=== PATIENT | male | born 1965 | race Caucasian/White ===

== ENCOUNTER 2025-03-26 15:06 | Observation (INO) | payer MEDICARE ==
--- NOTE | 2025-03-26 15:42 | ED ---
General Adult HPI - General Chief complaint: Extremity Problem,Nontraumatic Stated complaint: l foot swelling Time Seen by Provider: 03/26/25 15:17 Source: patient Mode of arrival: ambulatory Limitations: no limitations - History of Present Illness Initial comments: Patient is a pleasant 60-year-old gentleman, no significant medical history presenting today for left lower extremity swelling. Had noticed redness and swelling in his left foot about 3 weeks ago. Continued to worsen over the last 3 weeks. He denies recent injury. States he sleeps with his legs crossed. Endorses pain of the foot with twisting in certain directions. He denies syste cyrus symptoms such as fevers, chills, shortness of breath, chest pain, hemoptysis, cough, abdominal pain, nausea vomiting or diarrhea. Denies numbness. No history of blood clots. No recent travel, surgery or hospitalizations. Is not on hormone replacement therapy. Is a current cigarette smoker. No history of diabetes. No history malignancy. - Related Data Previous Rx's Medication Instructions Recorded Furosemide [Lasix] 40 mg PO DAILY 3 Days #3 tab 03/27/25 Nicotine 21Mg/24Hr Patch [Habitrol] 1 patch TRANSDERM DAILY 3 Days #3 03/27/25 patch Allergies Allergy/AdvReac Type Severity Reaction Status Date / Time ibuprofen AdvReac Nausea & Verified 03/26/25 18:05 Vomiting & Diarrhea Review of Systems ROS Statement: Those systems with pertinent positive or pertinent negative responses have been documented in the HPI. ROS Other: All systems not noted in ROS Statement are negative. Past Medical History Past Medical History: Asthma History of Any Multi-Drug Resistant Organisms: None Reported Past Surgical History: Appendectomy, Cholecystectomy, Joint Replacement, Orthopedic Surgery Past Psychological History: Anxiety Smoking Status: Current every day smoker Past Alcohol Use History: Rare Past Drug Use History: Marijuana General Exam - General Exam Comments Initial Comments: PE: CONSTITUTIONAL: No apparent distress, well appearing SKIN: Warm, dry, no jaundice, hives or petechiae. Mild erythema of the left foot, not well-demarcated, with 1-2+ pitting edema EYES: Pupils are equally round, extraocular movements intact without nystagmus, clear conjunctiva, non-icteric sclera HENT: Normocephalic, atraumatic, moist mucus membranes, oropharynx clear without exudates NECK: , Full range of motion, normal appearance PULMONARY: Clear to auscultation without wheezes, rhonchi, or rales, normal excursion, no accessory muscle use and no stridor CARDIOVASCULAR: Regular rate, rhythm, normal S1 and S2. No appreciated murmurs, rubs or gallops. 2+ dorsalis pedis pulses bilaterally 1-2+ pitting edema extending up to the knee of the left lower extremity GASTROINTESTINAL: Soft, active bowel sounds throughout, non-tender, non- distended, no palpable masses, no rebound or guarding. No hepatosplenomegaly GENITOURINARY: MUSCULOSKELETAL: Extremities have no gross deformity, no bony tenderness palpation, patient is able to range foot through full range of motion without pain or difficulty NEUROLOGIC:_a/o x 3, GCS 15, normal mentation and speech. Moves all extremities x 4 without motor or sensory deficit PSYCHIATRIC:_normal mood and affect, thought process is clear and linear Limitations: no limitations Course Vital Signs 03/26/25 03/26/25 03/26/25 15:09 17:50 19:40 Temperature 97.8 F Pulse Rate 79 70 56 L Respiratory 16 18 18 Rate Blood Pressure 150/79 172/96 142/72 O2 Sat by Pulse 98 97 100 Oximetry 03/26/25 21:28 Temperature Pulse Rate 60 Respiratory 18 Rate Blood Pressure 168/80 O2 Sat by Pulse 100 Oximetry Medical Decision Making - Medical Decision Making Was pt. sent in by a medical professional or institution (LIANNA Hernandez, HAND WORKER, urgent care, hospital, or senior living...) When possible be specific @ -No Did you speak to anyone other than the patient for history (EMS, parent, family, police, friend...)? What history was obtained from this source @ -No Did you review nursing and triage notes (agree or disagree)? Why? @ -I reviewed nursing and triage notes Were old charts reviewed (outside hosp., previous admission, EMS record, old EKG, old radiological studies, urgent care reports/EKG's, senior living records)? Report findings @ -Medical records reviewed-no prior records available for review Differential Diagnosis (chest pain, altered mental status, abdominal pain women, abdominal pain men, vaginal bleeding, weakness, fever, dyspnea, syncope, headache, dizziness, GI bleed, back pain, seizure, CVA, palpatations, mental health, musculoskeletal)? @Differential Musculoskeletal Muscular strain, contusion, ligament sprain, fracture, arthritis, septic arthritis, bursitis, cellulitis, muscle spasm, nerve compression, DVT, arterial occlusion, herpes zoster, electrolyte abnormality, tumor.... This is not meant to be in all inclusive list EKG interpreted by me (3pts min.). @ -As above X-rays interpreted by me (1pt min.). @Personally reviewed x-ray see no evidence of fracture or dislocation I agree with radiologist interpretation CT interpreted by me (1pt min.). @ -None done U/S interpreted by me (1pt. min.). @Reviewed ultrasound left lower extremity I see no evidence of DVT agree with radiologist interpretation What testing was considered but not performed or refused? (CT, X-rays, U/S, labs)? Why? @ -None What meds were considered but not given or refused? Why? @ -None Did you discuss the management of the patient with other professionals (bud sheffield i.e. , PA, HAND WORKER, lab, RT, psych nurse, social media campaign manager, chemical equipment controller, teacher, chief legal officer, patient case manager)? Give summary @ -No Was smoking cessation discussed for >3mins.? @ -No Was critical care preformed (if so, how long)? @ -No Were there social determinants of health that impacted care today? How? (Homelessness, low income, unemployed, alcoholism, drug addiction, transportation, low edu. Level, literacy, decrease access to med. care, [place] [facility], rehab)? @ -No Was there de-escalation of care discussed even if they declined (Discuss DNR or withdrawal of care, Hospice)? @ -No What co-morbidities impacted this encounter? (DM, HTN, Smoking, COPD, CAD, Cancer, CVA, ARF, Chemo, Hep., AIDS, mental health diagnosis, sleep apnea, morbid obesity)? Smoking Was patient admitted / discharged? Hospital course, mention meds given and route, prescriptions, significant lab abnormalities, going to OR and other pertinent info. Admission-this is a 60-year-old man presenting today for atraumatic left lower extremity swelling x 3 weeks. Vital signs on stable on arrival. Exam significant for left lower extremity edema with erythema to the left foot. No bony tenderness with palpation, no deformity. No obvious wounds. Plan for ultrasound of left lower extremity for DVT, labs, including CMP, CBC, lactic and CRP, patient agreeable w/ plan of care. Ultrasound negative for DVT, to ensure no signs of osteomyelitis, x-ray of the left ankle ordered and showed no fracture, + soft tissue edema. Labs overall reassuring. Discussed with patient admission for observation for IV antibiotics versus discharge home. Patient comfortable with either. Given the extent of erythema and edema of the lower extremity patient we admitted for observation for IV antibiotics.Rocephin ordered. Case was discussed Dr. Maria who kindly excepted patient for admission. Undiagnosed new problem with uncertain prognosis? @ -No Drug Therapy requiring intensive monitoring for toxicity (Heparin, Nitro, Insulin, Cardizem)? @ -No Were any procedures done? @ -No Diagnosis/symptom? @Left lower extremity swelling, cellulitis Acute, or Chronic, or Acute on Chronic? @ -Acute Uncomplicated (without systemic symptoms) or Complicated (systemic symptoms)? @Uncomplicated Side effects of treatment? @ -No Exacerbation, Progression, or Severe Exacerbation? @ -No Poses a threat to life or bodily function? How? (Chest pain, USA, AR, pneumonia, PE, COPD, DKA, ARF, appy, cholecystitis, CVA, Diverticulitis, Homicidal, Suicidal, threat to staff... and all critical care pts) @Possibly if left untreated could progress to sepsis and septic shock - Lab Data Result diagrams: 03/26/25 15:41 03/26/25 15:41 Lab Results 03/26/25 03/26/25 03/26/25 Range/Units 15:41 15:41 15:41 WBC 9.71 (4.50-10.00) 10*3/uL RBC 5.40 (4.40-5.60) 10*6/uL Hgb 17.5 H (13.0-17.0) g/dL Hct 50.3 H (39.6-50.0) % MCV 93.1 (80.0-97.0) fL MCH 32.4 H (27.0-32.0) pg MCHC 34.8 (32.0-37.0) g/dL Plt Count 230 (140-440) 10*3/uL MPV 9.6 (9.5-12.2) fL Immature Gran % (Auto) 0.3 % Neutrophils % 59.1 % Lymphocytes % 31.3 % Monocytes % 6.5 % Eosinophils % 1.9 % Basophils % 0.9 % Immature Gran # 0.03 (0.00-0.04) 10*3/uL Neutrophils # 5.74 (1.80-7.70) 10*3/uL Lymphocytes # 3.04 (0.90-5.00) 10*3/uL Monocytes # 0.63 (0.20-1.00) 10*3/uL Eosinophils # 0.18 (0.04-0.35) 10*3/uL Basophils # 0.09 (0.00-0.10) 10*3/uL PT 10.5 (10.0-12.5) sec INR 0.9 (<1.2) APTT 22.3 (22.0-30.0) sec Sodium 142 (137-145) mmol/L Potassium 4.6 (3.5-5.1) mmol/L Chloride 104 (98-107) mmol/L Carbon Dioxide 29 (22-30) mmol/L Anion Gap 9 mmol/L BUN 7 L (9-20) mg/dL Creatinine 0.88 (0.66-1.25) mg/dL Est GFR (CKD-EPI)AfAm >90 (>60 ml/min/1.73 sqM) Est GFR (CKD-EPI)NonAf >90 (>60 ml/min/1.73 sqM) Glucose 112 H (74-99) mg/dL Plasma Lactic Acid Christophe (0.7-2.0) mmol/L Calcium 9.6 (8.4-10.2) mg/dL Total Bilirubin 0.3 (0.2-1.3) mg/dL AST 29 (17-59) U/L ALT 18 (4-49) U/L Alkaline Phosphatase 81 (38-126) U/L C-Reactive Protein 1.1 H (<1.0) mg/dL Total Protein 7.0 (6.3-8.2) g/dL Albumin 4.3 (3.5-5.0) g/dL 03/26/25 Range/Units 15:41 WBC (4.50-10.00) 10*3/uL RBC (4.40-5.60) 10*6/uL Hgb (13.0-17.0) g/dL Hct (39.6-50.0) % MCV (80.0-97.0) fL MCH (27.0-32.0) pg MCHC (32.0-37.0) g/dL Plt Count (140-440) 10*3/uL MPV (9.5-12.2) fL Immature Gran % (Auto) % Neutrophils % % Lymphocytes % % Monocytes % % Eosinophils % % Basophils % % Immature Gran # (0.00-0.04) 10*3/uL Neutrophils # (1.80-7.70) 10*3/uL Lymphocytes # (0.90-5.00) 10*3/uL Monocytes # (0.20-1.00) 10*3/uL Eosinophils # (0.04-0.35) 10*3/uL Basophils # (0.00-0.10) 10*3/uL PT (10.0-12.5) sec INR (<1.2) APTT (22.0-30.0) sec Sodium (137-145) mmol/L Potassium (3.5-5.1) mmol/L Chloride (98-107) mmol/L Carbon Dioxide (22-30) mmol/L Anion Gap mmol/L BUN (9-20) mg/dL Creatinine (0.66-1.25) mg/dL Est GFR (CKD-EPI)AfAm (>60 ml/min/1.73 sqM) Est GFR (CKD-EPI)NonAf (>60 ml/min/1.73 sqM) Glucose (74-99) mg/dL Plasma Lactic Acid Christophe 1.3 (0.7-2.0) mmol/L Calcium (8.4-10.2) mg/dL Total Bilirubin (0.2-1.3) mg/dL AST (17-59) U/L ALT (4-49) U/L Alkaline Phosphatase (38-126) U/L C-Reactive Protein (<1.0) mg/dL Total Protein (6.3-8.2) g/dL Albumin (3.5-5.0) g/dL Disposition Clinical Impression: Cellulitis, Edema of left lower extremity Disposition: ADMITTED IP TO THIS [facility] Condition: Stable
[2025-03-26 16:14] LABS: Basophils # (A) 0.09 10*3/uL (0.00-0.10); Basophils % (A) 0.9 %; Eosinophils # (A) 0.18 10*3/uL (0.04-0.35); Eosinophils % (A) 1.9 %; HCT 50.3 % (39.6-50.0); HGB 17.5 g/dL (13.0-17.0); Lymphocytes # (A) 3.04 10*3/uL (0.90-5.00); Lymphocytes % (A) 31.3 %; MCH 32.4 pg (27.0-32.0); MCHC 34.8 g/dL (32.0-37.0); MCV 93.1 fL (80.0-97.0); Monocytes # (A) 0.63 10*3/uL (0.20-1.00); Monocytes % (A) 6.5 %; Neutrophils # (A) 5.74 10*3/uL (1.80-7.70); Neutrophils % (A) 59.1 %; Platelet Count 230 10*3/uL (140-440); RBC 5.40 10*6/uL (4.40-5.60); RDW 13.2 % (11.5-14.5); WBC 9.71 10*3/uL (4.50-10.00)
[2025-03-26 16:25] LABS: INR 0.9 (<1.2); Partial Thromboplastin Time 22.3 sec (22.0-30.0); Prothrombin Time 10.5 sec (10.0-12.5)
[2025-03-26 16:37] LABS: ALT 18 U/L (4-49); AST 29 U/L (17-59); African American GFR (CKD) >90 (>60 ml/min/1.73 sqM); Albumin 4.3 g/dL (3.5-5.0); Alkaline Phosphatase 81 U/L (38-126); Anion Gap 9 mmol/L; Blood Urea Nitrogen 7 mg/dL (9-20); Calcium 9.6 mg/dL (8.4-10.2); Carbon Dioxide 29 mmol/L (22-30); Chloride 104 mmol/L (98-107); Glucose 112 mg/dL (74-99); Non-African American GFR(CKD) >90 (>60 ml/min/1.73 sqM); Potassium 4.6 mmol/L (3.5-5.1); Sodium 142 mmol/L (137-145); Total Protein 7.0 g/dL (6.3-8.2)
--- NOTE | 2025-03-26 16:46 | US ---
EXAMINATION TYPE: US venous doppler duplex LE LT DATE OF EXAM: 03/26/2025 4:38 PM COMPARISON: NONE CLINICAL INDICATION: Male, 60 years old with history of atraumatic LLE, warmth, redness; Left ankle a nd foot redness and swelling. Pt states he thinks it was a bug bite., Pain TECHNIQUE: The lower extremity deep venous system is examined utilizing real time linear array sonog melecio with graded compression, color doppler sonography, and spectral doppler. SIDE PERFORMED: Left FINDINGS: VESSELS IMAGED: Common Femoral Vein Deep Femoral Vein Greater Saphenous Vein * Femoral Vein Popliteal Vein Small Saphenous Vein * Proximal Calf Veins (* superficial vessels) . Left Leg: No evidence for DVT, Color Doppler imaging shows patency of the vessels. Spectral waveform s are within normal limits. Subcutaneous edema of the calf. IMPRESSION: 1. No evidence of deep vein thrombosis of the left lower extremity. 2. Subcutaneous edema of the calf. [facility], , 03/26/2025 4:44 PM
--- NOTE | 2025-03-26 17:21 | XR ---
EXAMINATION TYPE: XR foot complete LT DATE OF EXAM: 03/26/2025 5:08 PM INDICATION: Patient age:Male; 60 years old; Reason for study: redness, swelling, no known injury; PHH. pain COMPARISON: None TECHNIQUE: The left foot was examined in the AP, oblique, and lateral projections. FINDINGS: No evidence of any acute osseous pathology. Dorsal soft tissue swelling over the metatarsals. No oss eous erosions. Joints are preserved. 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 No radiopaque foreign body. IMPRESSION: 1. No evidence of acute fracture. 2. Dorsal soft tissue swelling over the metatarsals. [facility], , 03/26/2025 5:18 PM
[2025-03-26] MEDS: cefTRIAXone IN SWFI 1,000 MG/10 ML SYRINGE IVP STA (17:47)
[2025-03-26] MEDS ORDERED: CALCIUM CARBONATE 500 MG CHEWABLE PO PRN (19:03)
[2025-03-26] MEDS ORDERED: MAG HYDROX/AL HYDROX/SIMETH 30 ML CUP PO PRN (19:03)
[2025-03-26] MEDS ORDERED: ACETAMINOPHEN TAB 325 MG TAB PO PRN (19:03)
[2025-03-26] MEDS ORDERED: NALOXONE 0.4 MG/ML 1 ML VIAL IV PRN (19:03)
[2025-03-26] MEDS ORDERED: ONDANSETRON 4 MG/2 ML VIAL IVP PRN (19:03)
[2025-03-26] MEDS: FAMOTIDINE 20 MG TAB PO SCH (20:19)
[2025-03-26] MEDS: HYDROcodone/APAP 5-325MG 1 EACH TAB PO PRN (22:26)
[2025-03-27 08:18] VITALS: BP 134/75; PULSE 51; RESP 14; TEMP 97.7
[2025-03-27] MEDS: NICOTINE 21MG/24HR PATCH TRANSDERM SCH (10:44)
[2025-03-27] MEDS: HEPARIN SODIUM,PORCINE 5,000 UNIT/ML 1 ML VIAL SQ SCH (10:44)
[2025-03-27] MEDS: ENOXAPARIN 40 MG/0.4 ML SYRINGE SQ SCH (11:14)
[2025-03-27] MEDS: FUROSEMIDE 40 MG TAB PO SCH (12:09)
== END 2025-03-27 12:30 | disposition home or self-care (01) ==
LOC: EC 15:06 → 5NMEDONC 19:03
PROVIDERS: ADMIT Internal Medicine; ATTEND Internal Medicine
DX: L03.116 Cellulitis of left lower limb (principal); Z79.899 Other long term (current) drug therapy; Z88.6 Allergy status to analgesic agent; F41.9 Anxiety disorder, unspecified
CPT/HCPCS: 96372; 96374; 99284; 36415; 80053; 83605; 85025; 85610; 85730; 86140; 73630; 93971; G0378 ×2; S4990; J1644; J0696